=== PATIENT | female | born 1955 | race Caucasian/White ===

== ENCOUNTER → 2018-06-29 | Outpatient (CLI) | payer OTHER ==
[~2018-06-29] MED LIST: OSTERA TABLET1 EACH PO; PROSTAMEN SOFT1 EACH PO; SINGULAIR10 M1 PO; SYNTHROID RP0.088 MG PO
== END | disposition home or self-care (01) ==
LOC: MRI 10:00
DX: M51.26 Other intervertebral disc displacement, lumbar region (principal); M48.061 Spinal stenosis, lumbar region without neurogenic claudication